=== PATIENT | male | born 1990 | race Caucasian/White ===

== ENCOUNTER 2017-06-10 15:03 | Emergency (ER) | payer BC ==
[~2017-06-10] VITALS: Ht 170.2 cm; Wt 72.7 kg
[~2017-06-10 15:03] MED LIST: CEFTR2P2 IV; DICL50TA2 PO; DILA2TAB4 PO; DOCU1CAP39 PO; LAMO100 PO; METR-1 PO
[2017-06-10 15:06] VITALS: BP 145/72; PULSE 71; RESP 16; TEMP 98.3; O2SAT 99
[2017-06-10] MEDS ORDERED: ZITHTAB PO (15:16)
[2017-06-10] MEDS ORDERED: LAMO100 PO (15:16)
--- NOTE | 2017-06-10 15:57 | PD ---
HPI Chief Complaint: Chest Pain Time Seen by Provider: 15:45 Travel History International Travel<30 days: No Contact w/Intl Traveler<30days: No Traveled to known affect area: No History of Present Illness HPI 26-year-old male presents emergency Department with complaint of left-sided chest pain 3 days. Is currently being treated for URI and on Z-Hair. Was seen at Dr. Prado [facility] 3 days ago for the same complaint and was told that everything was okay after having x-rays and labs. He also did a chest x-ray and gave prior to being seen at Dr. Prado and was never called with results. Chest pain is worse with movement, inspiration, and palpation. Denies shortness of breath. Denies fevers, chills. Reports cough. Denies hemoptysis. Denies leg edema. Denies history of DVT/PE. Denies leg edema. Reports tobacco use. Better at rest. Rates pain 6/10. Describes as a throbbing sensation. It has taken Aleve for symptom management. Just got out of rehab for opioid abuse. Denies IV drug use. Occasional marijuana. No known allergies. Dr. Alexis's primary care provider. Has no other medical complaints. No other modifying factors or associated signs and symptoms. PFSH Past Medical History Autoimmune Disease: No Blood Disorders: No Cancer: No Cardiovascular Problems: No Chemotherapy: No Diabetes: No Endocrine: No Gastrointestinal Disorders: Yes Genitourinary: No Hiatal Hernia: No Immune Disorder: No Musculoskeletal: No Neurologic: Yes Psychiatric: No Reproductive: No Respiratory: No Immunizations Current: Yes Radiation Therapy: No Seizures: Yes Thyroid Disease: No Ulcer: No Tetanus Vaccination: < 5 Years Past Surgical History Surgical History: No Previous Surgery AICD: No Arteriovenous Shunt: No Insulin Pump: No Joint Replacement: No Pacemaker: No Other Surgery: No Social History Alcohol Use: Yes (OCCAS) Tobacco Use: Yes (2-3 DAY) Substance Use: Yes (MARIJUANA OCASSIONAL) Allergies-Medications (Allergen,Severity, Reaction): Coded Allergies: ibuprofen (Verified Allergy, Severe, HIVES, 06/10/17) Reported Meds & Prescriptions Reported Meds & Active Scripts Active Deltasone (Prednisone) 20 Mg Tab 20 Mg PO BID 5 Days Ibuprofen 800 Mg Tab 800 Mg PO Q6HR PRN Reported Zithromax Z-Hair (Azithromycin) 250 Mg Dspk 250 Mg PO DIRECTED 500 MG (2 tabs) day 1, then 1 tab days 2-5. Lamictal (Lamotrigine) 100 Mg Tab 100 Mg PO DAILY Review of Systems Except as stated in HPI: all other systems reviewed are Neg Physical Exam Narrative GENERAL: Well-nourished, well-developed male patient, in no acute distress SKIN: Warm and dry. HEAD: Atraumatic. Normocephalic. EYES: Pupils equal and round. No scleral icterus. No injection or drainage. ENT: Mucosa pink and moist. NECK: Trachea midline. CHEST: Sternal and left lateral chest with reproducible chest wall tenderness; no crepitance or deformity. No retractions or use of accessory muscles. CARDIOVASCULAR: Regular rate and rhythm. No murmur appreciated. RESPIRATORY: No accessory muscle use. Clear to auscultation. Breath sounds equal bilaterally. No retractions or tachypnea. GASTROINTESTINAL: Abdomen soft, non-tender, nondistended. Hepatic and splenic margins not palpable. Bowel sounds are active 4 quadrants. MUSCULOSKELETAL: No obvious deformities. No clubbing. No cyanosis. No edema. NEUROLOGICAL: Awake and alert. Oriented 3. No obvious cranial nerve deficits. Motor grossly within normal limits. Normal speech. Moves all extremities. 5/5 strength to all extremities. PSYCHIATRIC: Appropriate mood and affect; insight and judgment normal. Data Data Last Documented VS Vital Signs Date Time Temp Pulse Resp B/P (MAP) Pulse Ox O2 Delivery O2 Flow Rate FiO2 06/10/17 15:06 98.3 71 16 145/72 (96) 99 Room Air Orders Orders Electrocardiogram (06/10/17 ) Electrocardiogram (06/10/17 15:57) Ketorolac Inj (Toradol Inj) (06/10/17 16:15) Ed Discharge Order (06/10/17 16:12) [facility] Medical Decision Making Medical Screen Exam Complete: Yes Emergency Medical Condition: Yes Medical Record Reviewed: Yes Differential Diagnosis Chest wall pain, costochondritis, pleuritic chest pain, less likely PE Narrative Course 26-year-old male with reproducible left chest wall pain 3 days. Was seen at Dr. Lua [facility] in [place] 3 days ago for same complaint and had his x-ray and labs and was told "everything is okay." He is currently being treated with a Z-Hair for URI and is on day 3. Denies fevers, vomiting. Reports cough. Chest pain is worse with inspiration, movement, palpation. Lung sounds are clear and equal throughout. No retractions or tachypnea. No acute distress. PERC negative. EKG ordered. 1605: EKG with normal sinus rhythm; without ST elevation or depression; reviewed by Dr. Chacon. I discussed the patient with Dr. Chacon and she agrees the patient is stable for discharge. Toradol administered. Ibuprofen and Deltasone prescribed for home. Instructed patient to follow up with primary care provider. Patient verbalizes understanding and agreement with treatment plan. Patient is medically cleared and stable for discharge. Discussed reasons to return to the emergency department. Patient agrees with treatment plan. The patients vital signs are stable and the patient is stable for outpatient follow-up and treatment. Patient discharged home, stable and in no acute distress. Diagnosis Primary Impression: Chest wall pain Referrals: [facility] Primary Care Physician Patient Instructions: Chest Wall Pain (ED), Costochondritis (ED), General Instructions Additional Instructions: Ibuprofen or Tylenol as directed and as needed to reduce pain Heating pad and/or ice to affected area to reduce pain Avoid aggravating activities; increase activity as tolerated Gentle stretching to the affected muscle may be helpful Follow-up with a primary care provider Return to the emergency department immediately with worsening of symptoms Med/Other Pt SpecificInfo: Prescription(s) given Scripts Prednisone (Deltasone) 20 Mg Tab 20 MG PO BID for 5 Days, #10 TAB 0 Refills Prov: Lili Oliveros 06/10/17 Ibuprofen (Ibuprofen) 800 Mg Tab 800 MG PO Q6HR Y for PAIN, #30 TAB 0 Refills Prov: Lili Oliveros 06/10/17 Disposition: 01 DISCHARGE HOME Condition: Stable Lili Oliveros Jun 10, 2017 15:57
[2017-06-10] MEDS ORDERED: PRED-503 PO (16:06)
[2017-06-10] MEDS ORDERED: IBUP1TAB7 PO (16:06)
[2017-06-10] MEDS ORDERED: KETOROLAC TROMETHAMINE 60 MG/2 ML (IM) VIAL IM ONE (16:15)
--- NOTE | 2017-06-10 20:53 | EKG ---
Date Performed: 06/10/2017 Time Performed: 15:58:48 PTAGE: 26 years EKG: Sinus rhythm NORMAL ECG NO PREVIOUS TRACING DOCTOR: Papi Swain Interpretating Date/Time 06/10/2017 20:52:51
== END 2017-06-10 16:39 | disposition home or self-care (01) ==
LOC: NEPD 15:03
DX: R07.89 Other chest pain (principal); R05 Cough; F12.90 Cannabis use, unspecified, uncomplicated; Z72.0 Tobacco use
CPT/HCPCS: 93005; 96372; 99284; J1885